=== PATIENT | male | born 1980 | race Caucasian/White ===

== ENCOUNTER 2019-09-10 23:38 | Emergency (ER) | payer SELFPAY ==
[~2019-09-10] VITALS: Ht 177.8 cm; Wt 94.1 kg
[~2019-09-10 23:38] MED LIST: HYDROCODONE-APA1 TAB PO
[2019-09-10 23:47] VITALS: Ht 177.8 cm; Wt 94.1 kg
[2019-09-10] MEDS ORDERED: ADDERALL 30 MG30 MG PO (23:49)
[2019-09-10] MEDS ORDERED: VALIUM10 MG PO (23:49)
[2019-09-10] MEDS ORDERED: CATAPRES0.2 MG PO (23:49)
[2019-09-10] MEDS ORDERED: DILANTIN100 MG PO (23:50)
[2019-09-10] MEDS ORDERED: AMBIEN10 MG PO (23:50)
[2019-09-11] MEDS ORDERED: KEFLEX500 MG PO (00:51)
[2019-09-11] MEDS ORDERED: ULTRAM50 MG PO (00:51)
[2019-09-11] MEDS ORDERED: IBUPROFEN800 MG PO (00:51)
[2019-09-11 01:30] VITALS: BP 136/76
== END 2019-09-11 01:31 | disposition home or self-care (01) ==
LOC: D.ER 23:38
DX: S62.635A Displaced fracture of distal phalanx of left ring finger, initial encounter for closed fracture (principal); W20.8XXA Other cause of strike by thrown, projected or falling object, initial encounter; S61.305A Unspecified open wound of left ring finger with damage to nail, initial encounter

== ENCOUNTER 2020-01-16 10:58 | Emergency (ER) | payer SELFPAY ==
[~2020-01-16] VITALS: Ht 177.8 cm; Wt 79.5 kg
[~2020-01-16 10:58] MED LIST changes: +ADDERALL 30 MG30 MG PO; +AMBIEN10 MG PO; +CATAPRES0.2 MG PO; +DILANTIN100 MG PO; +IBUPROFEN800 MG PO; +KEFLEX500 MG PO; +ULTRAM50 MG PO; +VALIUM10 MG PO
[2020-01-16 11:18] VITALS: BP 174/95; Ht 177.8 cm; Wt 79.5 kg
[2020-01-16 12:15] LABS: CALC OSMOLALITY 280 mosm/kg (275-300); CHLORIDE - SERUM 104 mmol/L (98-107); CREATININE - SERUM 0.8 mg/dL (0.6-1.3); GLUCOSE 110 mg/dL (74-106); POTASSIUM - SERUM 4.7 mmol/L (3.5-5.1); SODIUM 138 mmol/L (136-145); UREA NITROGEN 24 mg/dL (7-18); eGFR NON AFRICAN AMERICAN > 90 mL/min (90-120)
[2020-01-16 12:24] LABS: ALBUMIN 3.9 g/dL (3.4-5.0); ALKALINE PHOSPHATASE 60 U/L (30-120); ALT (SGPT) 53 U/L (10-68); AMYLASE - SERUM 38 U/L (25-115); BILIRUBIN - TOTAL 0.23 mg/dL (0.2-1.3); LIPASE 166 U/L (73-393); MAGNESIUM - SERUM 2.1 mg/dL (1.8-2.4); PROTEIN - SERUM 6.8 g/dL (6.4-8.2)
[2020-01-16 12:26] LABS: TROPONIN-I < 0.017 ng/mL (0.000-0.060)
[2020-01-16 12:34] LABS: BASOPHILS 0.2 % (0-2); HEMATOCRIT 39.9 % (42.0-54.0); HEMOGLOBIN 13.2 g/dL (13.5-17.5); IMMATURE GRANULOCYTES 0.1 % (0-5); LYMPHOCYTES 13.6 % (15-50); MCHC 33.1 g/dL (31.0-37.0); MCV 87.7 fL (80.0-100.0); MONOCYTES 5.1 % (2-11); PLATELET COUNT 246 10x3/uL (130-400); RBC 4.55 10x6/uL (4.20-6.10); RDW 12.4 % (11.5-14.5); WBC 8.7 10x3/uL (4.8-10.8)
[2020-01-16 13:17] LABS: UDS - AMPHET POSITIVE QUAL (NEGATIVE); UDS - BARB NEGATIVE QUAL (NEGATIVE); UDS - BENZO POSITIVE QUAL (NEGATIVE); UDS - COCAINE NEGATIVE QUAL (NEGATIVE); UDS - OPIATE NEGATIVE QUAL (NEGATIVE); UDS - PCP NEGATIVE QUAL (NEGATIVE); UDS - THC POSITIVE QUAL (NEGATIVE)
[2020-01-16 13:41] LABS: BILIRUBIN NEGATIVE (NEGATIVE); GLUCOSE NEGATIVE (NEGATIVE); KETONE NEGATIVE (NEGATIVE); NITRITE NEGATIVE (NEGATIVE); SPECIFIC GRAVITY 1.015 (1.005-1.020); UROBILINOGEN NORMAL (NORMAL)
[2020-01-24] MEDS ORDERED: ULTRAM50 MG PO (11:39)
== END 2020-01-23 17:33 | disposition home or self-care (01) ==
LOC: D.ER 10:58
PROVIDERS: Emergency Medicine
DX: K40.90 Unilateral inguinal hernia, without obstruction or gangrene, not specified as recurrent (principal); D64.9 Anemia, unspecified; G89.29 Other chronic pain; M54.9 Dorsalgia, unspecified

== ENCOUNTER 2020-01-24 09:08 | Emergency (ER) | payer SELFPAY ==
[~2020-01-24] VITALS: Ht 177.8 cm; Wt 79.5 kg
[2020-01-24 09:12] VITALS: BP 158/90; Ht 177.8 cm; Wt 79.5 kg
[2020-01-24] MEDS ORDERED: ULTRAM50 MG PO (11:39)
== END 2020-01-24 12:10 | disposition home or self-care (01) ==
LOC: D.ER 09:08
DX: K40.90 Unilateral inguinal hernia, without obstruction or gangrene, not specified as recurrent (principal); M54.9 Dorsalgia, unspecified; G56.00 Carpal tunnel syndrome, unspecified upper limb

== ENCOUNTER 2020-03-13 11:17 | Emergency (ER) | payer SELFPAY ==
[~2020-03-13] VITALS: Ht 177.8 cm; Wt 81.8 kg
[2020-03-13 11:35] VITALS: BP 182/99; Ht 177.8 cm; Wt 81.8 kg
== END 2020-03-13 11:58 | disposition home or self-care (01) ==
LOC: D.ER 11:17
DX: K40.90 Unilateral inguinal hernia, without obstruction or gangrene, not specified as recurrent (principal); I10 Essential (primary) hypertension

== ENCOUNTER 2020-03-21 06:17 | Day surgery (SDC) | payer MEDICAID ==
[~2020-03-21] VITALS: Ht 175.3 cm; Wt 78.5 kg
[~2020-03-21 06:17] MED LIST changes: +HYDROCODON-ACE1 EA10 PO
[2020-03-21 06:37] LABS: BASOPHILS 0.3 % (0-2); EOSINOPHILS 3.7 % (0-7); HEMOGLOBIN 13.2 g/dL (13.5-17.5); IMMATURE GRANULOCYTES 0.4 % (0-5); LYMPHOCYTES 26.9 % (15-50); MCH 28.8 pg (26.0-34.0); MCHC 32.2 g/dL (31.0-37.0); MCV 89.5 fL (80.0-100.0); MEAN PLATELET VOLUME 9.3 fL (7.4-10.4); MONOCYTES 7.4 % (2-11); NEUTROPHILS 61.3 % (40-80); PLATELET COUNT 269 10x3/uL (130-400); RBC 4.58 10x6/uL (4.20-6.10); RDW 13.1 % (11.5-14.5); WBC 11.7 10x3/uL (4.8-10.8)
[2020-03-21 06:41] LABS: CALC OSMOLALITY 283 mosm/kg (275-300); CALCIUM 8.7 mg/dL (8.5-10.1); CHLORIDE - SERUM 105 mmol/L (98-107); CREATININE - SERUM 0.9 mg/dL (0.6-1.3); GLUCOSE 102 mg/dL (74-106); POTASSIUM - SERUM 4.2 mmol/L (3.5-5.1); SODIUM 141 mmol/L (136-145); UREA NITROGEN 21 mg/dL (7-18); eGFR NON AFRICAN AMERICAN > 90 mL/min (90-120)
[2020-03-21 07:28] VITALS: BP 127/75; Ht 175.3 cm; Wt 78.5 kg
--- NOTE | 2020-03-21 11:55 | NUR ---
[id number] to room from pacu. resp with ease, o2 on at 2l per nc. LIHR dressing dry and intact. liquids given, no nausea.
--- NOTE | 2020-03-21 12:43 | NUR ---
DISCHARGED INSTRUCTIONS PROVIDED, WHEELED OUT
--- NOTE | 2020-03-25 16:49 | OP ---
PATIENT NAME: ELLE HUFF MEDICAL RECORD: [id number] :84 [facility] [place] AD[facility] DATE: SURGEON: REMY MUONZ MD DATE OF OPERATION: 03/21/2020 PREOPERATIVE DIAGNOSES: 1. Left inguinal hernia. 2. Hypertension. 3. Chronic low back pain. POSTOPERATIVE DIAGNOSES: 1. Left inguinal hernia. 2. Hypertension. 3. Chronic low back pain. PROCEDURE: 1. Left inguinal hernia repair with medium PHS mesh. 2. Diagnostic laparoscopy. SURGEON: Remy Munoz MD REPORT OF PROCEDURE: The patient's abdomen was prepped and draped in sterile fashion. An oblique incision was made just above the left inguinal ligament and electrocautery was used to dissect through the subcutaneous tissues to the external oblique fascia. This fascia was opened up to the external ring using electrocautery. The spermatic cord was elevated and a Carlton was placed around it. The ilioinguinal nerve was found and high ligated. The patient had indirect hernia defect, which was dissected from the spermatic cord. The patient also had a cord lipoma. The cord lipoma was high ligated with a 3-0 silk. The hernia sac was then opened up and I was able to feel into the patient's abdominal cavity. A 2-0 Vicryl was used to make a pursestring and we inserted a 5-mm trocar into the abdomen and insufflated. A 5-mm camera was inserted and we were able to inspect the patient's right groin and there was no evidence of a hernia present. At this point, the trocar was removed along with insufflation. The hernia sac was high ligated with a 3-0 silk tie. We then opened up the inguinal floor and the preperitoneal space of Retzius. A medium PHS mesh was inserted and then sutured down on all 4 sides using multiple interrupted 0 Vicryls. The wound was then irrigated out with normal saline. The external oblique fascia was closed with running 2-0 Vicryl, Cresencio was closed with interrupted 3-0 Vicryl and the skin was closed with running subcutaneous 5-0 Monocryl. The wound was then infused with 10 mL of 0.25% Marcaine with epinephrine and dressed appropriately. COMPLICATIONS: None. CONDITION: Stable. ANESTHESIA: General endotracheal and local. BLOOD LOSS: Minimal. TRANSINT:[id number] Voice Confirmation ID: [id number] DOCUMENT ID: [id number] OPERATIVE REPORT [id number] ELLE HUFF CHRISTIAN MD at 1649 CC: AILYN ANDREA [id number] DICTATION DATE: 03/21/20 1056 [facility]: 03/21/20 1522 [facility] 03/21/20 [facility] [address] [id number]
== END 2020-03-21 12:45 | disposition home or self-care (01) ==
LOC: D.OPS 06:17
PROVIDERS: ATTEND Surgery
DX: K40.90 Unilateral inguinal hernia, without obstruction or gangrene, not specified as recurrent (principal); I10 Essential (primary) hypertension; M54.5 Low back pain; G89.29 Other chronic pain; K29.70 Gastritis, unspecified, without bleeding

== ENCOUNTER → 2020-05-05 15:00 | Outpatient (CLI) | payer MEDICAID ==
[2020-03-21 07:28] VITALS: BMI 25.6
== END | disposition home or self-care (01) ==
LOC: D.MRI 15:00
PROVIDERS: ATTEND Orthopaedic Surgery
DX: M54.12 Radiculopathy, cervical region (principal)